=== PATIENT | male | born 1945 | race Caucasian/White ===

== ENCOUNTER 2022-11-14 08:42 | Day surgery (SDC) | payer OTHER ==
[2022-11-14] VITALS (9 sets, daily range): BP systolic 97–121; BP diastolic 46–86
[~2022-11-14] VITALS: Ht 166 cm; Wt 108.7 kg
[2022-11-14] MEDS ORDERED: BUPR150ER PO (09:48)
[2022-11-14] MEDS ORDERED: LISI5 PO (09:49)
[2022-11-14] MEDS ORDERED: LEVOTHYROXINE137 M11 PO (09:49)
[2022-11-14] MEDS ORDERED: ESCI20 PO (09:50)
[2022-11-14] MEDS ORDERED: HYDCHL25 PO (09:50)
[2022-11-14] MEDS ORDERED: TAMS.4ER PO (09:51)
[2022-11-14] MEDS ORDERED: TRAZ100 PO (09:51)
--- NOTE | 2022-11-14 10:08 | NUR ---
Ambulatory in Day Surgery History, Chart, Medications and Allergies reviewed before start of procedure.Patient confirms NPO status and agrees with scheduled surgery. Patient reports completing Chlorhexadine shower X2 prior to admission to hospital.Patient States Post-Procedure ride home has been arranged.
--- NOTE | 2022-11-14 13:28 | NUR ---
DISCHARGE NOTE PT [id number]&OX4, BREATHING RA, CHATTING C STAFF, TOLERATING PO FLUIDS AND FOOD. PO PAIN PILL GIVEN. Dressing to procedure site clean, dry, intact with no visible drainage, swelling, erythema or bruising noted. Discharge instructions reviewed with patient. Patient verbalizes understanding. Copy given to patient to take home. Discharged via wheelchair to private car for ride home.
== END 2022-11-14 13:20 | disposition home or self-care (01) ==
LOC: ORSCMMR 08:42 → ORD 10:00 → ORSCMMR 13:20
PROVIDERS: Surgery
PROC: 0YU60JZ Supplement Left Inguinal Region with Synthetic Substitute, Open Approach (ICD-10-PCS; principal; 2022-11-14 10:00)
DX: K40.30 Unilateral inguinal hernia, with obstruction, without gangrene, not specified as recurrent (principal); I10 Essential (primary) hypertension; I12.9 Hypertensive chronic kidney disease with stage 1 through stage 4 chronic kidney disease, or unspecified chronic kidney disease; N18.9 Chronic kidney disease, unspecified; B19.20 Unspecified viral hepatitis C without hepatic coma; E03.9 Hypothyroidism, unspecified; E66.9 Obesity, unspecified; Z68.39 Body mass index [BMI] 39.0-39.9, adult; Z79.899 Other long term (current) drug therapy; F43.10 Post-traumatic stress disorder, unspecified; Z87.891 Personal history of nicotine dependence
CPT/HCPCS: A9270; C1781; J0690; J2704; J3010; J7120